=== PATIENT | female | born 1965 ===

== ENCOUNTER 2021-01-11 16:42 | Emergency (ER) | payer MEDICAID ==
[~2021-01-11] VITALS: Ht 152.4 cm; Wt 75.7 kg
[2021-01-11 16:49] VITALS: BP 133/91
== END 2021-01-11 20:29 | disposition left against medical advice (07) ==
LOC: ER 16:42
DX: R19.7 Diarrhea, unspecified (principal); Z53.21 Procedure and treatment not carried out due to patient leaving prior to being seen by health care provider